=== PATIENT | male | born 1985 | race Caucasian/White ===

== ENCOUNTER 2018-12-05 14:59 | Emergency (ER) | payer OTHER ==
[~2018-12-05] VITALS: Ht 180.3 cm; Wt 90.7 kg
--- NOTE | 2018-12-05 15:32 | Diagnostic Imaging Report ---
INDICATION: Left wrist pain after knee and fell on patient. TECHNIQUE: 3 views of the left wrist CORRELATION STUDY: None FINDINGS: The osseous structures of the wrist have an unremarkable appearance. Alignment is anatomic. There is no acute bony abnormality. The visualized soft tissues appearing unremarkable. IMPRESSION: 1. Negative examination of the wrist. Dictated by: Dictated on workstation # [id number]
[2018-12-05 16:08] VITALS: BP 138/77
--- NOTE | 2018-12-05 16:10 | ED Upper Extremity ---
General Chief Complaint: Upper Extremity Stated Complaint: WC CLT WRIST INJ Nursing Triage Note: PT REPORTS A CANOE FELL ON HIS LEFT WRIST YESTERDAY WHILE AT WORK [facility] [employer] [place] [employer]. PT COMPLAINS OF CONTINUED LEFT WRIST PAIN. Nursing Sepsis Screen: No Definite Risk Source: patient History of Present Illness Date Seen by Provider: Dec 05, 2018 Time Seen by Provider: 16:00 Initial Comments Patient is a 33-year-old right-handed male presents with left wrist injury. Patient was holding a last night at work when it twisted and landed against the top of his left wrist. Patient reports persistent soft tissue pain tenderness and swelling over the dorsum of the proximal wrist. No deformity appreciated. Patient spoke to his Poss this afternoon who referred him to the ED for additional evaluation. No other injury or complaints. Onset: yesterday Pain/Injury Location: left wrist Method of Injury: direct blow Modifying Factors: Improves With Movement Allergies and Home Medications Patient Home Medication List Home Medication List Reviewed: Yes Review of Systems Constitutional: no symptoms reported EENTM: double vision Cardiovascular: no symptoms reported Gastrointestinal: no symptoms reported Musculoskeletal: see HPI Skin: no symptoms reported Past Aoqrrhn-Krxrzw-Ibtxce Hx Past Med/Social Hx: Reviewed Nursing Past Med/Soc Hx Patient Social History Alcohol Use: Denies Use Recreational Drug Use: No Smoking Status: Current Everyday Smoker Type Used: Cigarettes 2nd Hand Smoke Exposure: No Recent Foreign Travel: No Contact w/Someone Who Travel: No Recent Infectious Disease Expo: No Recent Hopitalizations: No Physical Abuse: No Sexual Abuse: No Mistreated: No Fear: No Seasonal Allergies Seasonal Allergies: No Past Medical History Surgeries: No Respiratory: No Cardiac: No Neurological: No Genitourinary: No Gastrointestinal: No Musculoskeletal: No Endocrine: No HEENT: No Cancer: No Psychosocial: No Integumentary: No Blood Disorders: No Physical Exam Vital Signs Vital Signs - First Documented 12/05/18 15:23 Temp 96.6 Pulse 76 Resp 18 B/P (MAP) 138/77 (97) Capillary Refill : Less Than 3 Seconds Height, Weight, BMI Height: 5'11.00" Weight: 200lbs. oz. 90.917045lf; BMI Method:Stated General Appearance: no apparent distress Wrist: Yes normal ROM; No bone tenderness, No limited ROM; Yes pain, Yes soft tissue tenderness Neurologic/Psychiatric: no motor/sensory deficits Progress/Results/Core Measures Results/Orders My Orders Orders - GARY GIORDANO DO Wrist 3 View Left (12/05/18 15:22) Vital Signs/I&O 12/05/18 15:23 Temp 96.6 Pulse 76 Resp 18 B/P (MAP) 138/77 (97) Blood Pressure Mean: 97 Departure Communication (Admissions) Left wrist injury without evidence of fracture on imaging study. Recommend supportive care with PCP or work comp follow-up as needed. Impression Primary Impression: Left wrist injury Disposition: HOME, SELF-CARE Condition: Improved Departure-Patient Inst. Referrals: NO,LOCAL PHYSICIAN (PCP/Family) Primary Care Physician Patient Instructions: Contusion (DC) Add. Discharge Instructions: Please wear wrist splint for comfort and support. Take ibuprofen for pain and apply ice to 3 times daily as needed for additional relief. Follow up with your PCP or work comp physician early week for reevaluation. All discharge instructions reviewed with patient and/or family. Voiced unders tanding. GARY GIORDANO DO Dec 05, 2018 16:10
--- OUTSIDE RECORDS SUMMARY | 2018-12-05 17:42 | XMS REPORT ---
Author Author TK MATUTE [facility] Address [address] [place] [address] Phone Unavailable Care Team Providers Care Web Marketing Manager Name Role Phone TK MATUTE Unavailable Unavailable PROBLEMS Unknown Problems ALLERGIES No Known Allergies ENCOUNTERS Encounter Location Date Diagnosis [facility] [address] [id number] Nov, Dental examination Z01.20 [facility] [address] [id number] Nov, Dental examination Z01.20 IMMUNIZATIONS No Known Immunizations SOCIAL HISTORY Never Assessed REASON FOR VISIT prophy PLAN OF CARE Activity Details Follow Up sean Reason:srp VITAL SIGNS MEDICATIONS No Known Medications RESULTS No Results PROCEDURES Procedure Date Ordered Result Body Site Dental no charge December 03, 2016 INSTRUCTIONS MEDICATIONS ADMINISTERED No Known Medications
--- OUTSIDE RECORDS SUMMARY | 2018-12-05 17:42 | XMS REPORT ---
Author Author CECILLE LINN [facility] Address Unknown Care Team Providers Care Raised Printer Name Role Phone CECILLE LINN Unavailable PROBLEMS Unknown Problems ALLERGIES No Known Allergies ENCOUNTERS Encounter Location Date Diagnosis [facility] [address] [facility] [id number] [id number] Nov, Dental examination Z01.20 [facility] [address] [facility] [id number] [id number] Nov, Dental examination Z01.20 IMMUNIZATIONS No Known Immunizations SOCIAL HISTORY Never Assessed REASON FOR VISIT jadon PLAN OF CARE Activity Details Follow Up prn Reason:hygiene VITAL SIGNS Blood pressure systolic 133 mmHg 2016-12-03 Blood pressure diastolic 91 mmHg 2016-12-03 MEDICATIONS No Known Medications RESULTS No Results PROCEDURES Procedure Date Ordered Result Body Site LTD ORAL EVALUATION - PROBLEM FOCUS December 03, 2016 INTRAORL-PERIAPICAL 1 FILM 13581 December 03, 2016 PANORAMIC FILM SEE ALSO CODE [id number] December 03, 2016 INTRAORL-PERIAPICAL EA ADD FILM December 03, 2016 INTRAORL-PERIAPICAL EA ADD FILM December 03, 2016 BITEWINGS - FOUR FILMS December 03, 2016 INTRAORL-PERIAPICAL EA ADD FILM December 03, 2016 INSTRUCTIONS MEDICATIONS ADMINISTERED No Known Medications
--- OUTSIDE RECORDS SUMMARY | 2018-12-05 17:42 | XMS REPORT | Continuity of Care Document ---
Author Organization Unknown Address Unknown Allergies There is no data. Medications There is no data. Problems There is no data. Procedures There is no data. Results There is no data. Encounters ACCT No. Visit Date/Time Discharge Status Pt. Type Provider Facility Loc./Unit Complaint [id number] 08/24/2015 10:04:31 08/24/2015 23:59:59 CLS Outpatient JUS JARAMILLO [facility]
== END 2018-12-05 16:16 | disposition home or self-care (01) ==
LOC: ER FS 15:01
DX: S69.92XA Unspecified injury of left wrist, hand and finger(s), initial encounter (principal); F17.210 Nicotine dependence, cigarettes, uncomplicated; X50.1XXA Overexertion from prolonged static or awkward postures, initial encounter; Y92.59 Other trade areas as the place of occurrence of the external cause; Y99.0 Civilian activity done for income or pay
CPT/HCPCS: 73110

== ENCOUNTER → 2019-01-21 | Outpatient (CLI) | payer OTHER ==
--- NOTE | 2019-01-21 12:55 | Diagnostic Imaging Report ---
INDICATION: Wrist pain. Injury. COMPARISON: None. FINDINGS: Three views of the left wrist demonstrate no acute fracture or dislocation. There are no focal osseous lesions. No avascular necrosis is seen. The visualized soft tissue structures are unremarkable. The pronator fat pad is not displaced. There are no radio opaque foreign bodies. IMPRESSION: 1. No acute fracture or dislocation in the left wrist. Dictated by: Dictated on workstation # [id number]
== END ==
LOC: RAD FS 12:42
PROVIDERS: ATTEND Nurse Practitioner
DX: M25.532 Pain in left wrist (principal); X58.XXXA Exposure to other specified factors, initial encounter
CPT/HCPCS: 73110